=== PATIENT | male | born 1970 | race Caucasian/White ===

== ENCOUNTER 2023-05-09 10:13 | Emergency (ER) | payer SELFPAY ==
[~2023-05-09] VITALS: Ht 172.7 cm; Wt 75.0 kg
[2023-05-09 10:17] VITALS: BP 150/80; PULSE 70; RESP 18; TEMP 98; O2SAT 100
[2023-05-09] MEDS ORDERED: TETANUS, DIPHTHERIA, PERTUSSIS VAC/PF 0.5ML (>10YR OLD) IM ONE (10:30)
[2023-05-09 12:05] LABS: BASOPHILS % 2.2 % (0.0-2.0); EOSINOPHILS % 3.1 % (0.0-5.0); HEMATOCRIT. 35.8 % (42.0-52.0); LYMPHOCYTES % 30.8 % (20.0-50.0); MEAN CORPUSCULAR HEMOGLOBIN 30.9 pg (28.0-32.0); MEAN CORPUSCULAR HGB CONC 33.5 g/dL (31.0-37.0); MEAN CORPUSCULAR VOLUME 92.4 fL (80.0-94.0); MEAN PLATELET VOLUME 7.7 fl (7.4-10.4); MONOCYTES % 13.3 % (2.0-8.0); NEUTROPHILS % 50.6 % (40.0-76.0); PLATELET 236 x1000/uL (130-400); RED BLOOD CELL COUNT 3.87 mill/uL (4.7-6.1); RED CELL DISTRIBUTION WIDTH 15.7 % (11.6-14.6); WHITE BLOOD COUNT 4.2 x1000/uL (4.5-11.0)
[2023-05-09 14:07] LABS: CHLORIDE 105 mEq/L (98-107); INDEX HEMOLYSI 2 (1-3); INDEX ICTERIC 1 (1-4); INDEX LIPEMIC 1 (1-3); POTASSIUM 3.3 mEq/L (3.5-5.1); SODIUM 141 mEq/L (136-145)
[2023-05-09 14:16] LABS: ALANINE AMINOTRANSFERASE 64 IU/L (13-61); ALBUMIN 3.4 g/dL (3.4-5.0); ASPARTATE AMINOTRANSFERASE 45 IU/L (15-37); BILIRUBIN TOTAL 0.5 mg/dL (0.1-1.0); CALCIUM 8.1 mg/dL (8.5-10.1); CARBON DIOXIDE 25 mEq/L (21-32); CREATININE 0.8 mg/dL (0.6-1.3); ETHANOL BLOOD 153 mg/dL (<10); GLUCOSE 77 mg/dL (70-105); PROTEIN TOTAL 7.4 g/dL (6.0-8.3); UREA NITROGEN BLOOD 16 mg/dL (7-21)
== END 2023-05-09 20:13 | disposition home or self-care (01) ==
LOC: ER 11:18
DX: F10.20 Alcohol dependence, uncomplicated (principal); Y90.0 Blood alcohol level of less than 20 mg/100 ml; R41.82 Altered mental status, unspecified; M79.642 Pain in left hand
CPT/HCPCS: 80053; 80320; 85025; 36415; 73130; 90715; 90471; 99284; Z7610; G0480

== ENCOUNTER 2023-10-04 01:15 | Emergency (ER) | payer MEDICAID ==
[~2023-10-04] VITALS: Ht 167.6 cm; Wt 74.0 kg
[2023-10-04 01:20] VITALS: BP 155/92; PULSE 86; RESP 16; TEMP 98.2; O2SAT 98
== END 2023-10-04 02:00 | disposition left against medical advice (07) ==
LOC: ER 01:15
DX: R07.89 Other chest pain (principal); Z53.21 Procedure and treatment not carried out due to patient leaving prior to being seen by health care provider
CPT/HCPCS: 99281; 99283

== ENCOUNTER 2024-09-08 21:27 | Emergency (ER) | payer MEDICAID ==
[~2024-09-08] VITALS: Ht 167.6 cm; Wt 70.0 kg
[~2024-09-08 21:27] MED LIST: FERR325T6 MT; NAPR-677 MT
[2024-09-08 21:41] VITALS: BP 166/103; PULSE 83; RESP 16; TEMP 36.8; O2SAT 100
== END 2024-09-09 00:57 | disposition left against medical advice (07) ==
LOC: ER 21:27
DX: Z00.8 Encounter for other general examination (principal); Z53.21 Procedure and treatment not carried out due to patient leaving prior to being seen by health care provider